=== PATIENT | male | born 1960 | race Caucasian/White ===

== ENCOUNTER 2020-11-26 18:32 | Observation (INO) | payer OTHER ==
[~2020-11-26] VITALS: Ht 180.3 cm; Wt 86.5 kg
[~2020-11-26 18:32] MED LIST: BACL-19 PO; CARI350T PO; EMPA1TAB PO; HYDR4TAB48 PO; INDO50CA15 PO; INSU100I28 SQ; METF10002 PO; METO-99 PO; PANT40TA6 PO; PIOG30TA23 PO; ROSU40TA PO; ROSU5TAB PO; TRAZ-175 PO; VENL150C6 PO
[2020-11-26] MEDS ORDERED: ASPIRIN 81 MG TABLET CHEW ONE (18:57)
[2020-11-26] MEDS ORDERED: ASPIRIN 81 MG TABLET CHEW PO ONE (19:00)
--- NOTE | 2020-11-26 19:00 | NUR ---
BROUGHT IN FROM HOME BY . PT STATES HE HAD A CRAMP IN LEFT ARM LAST NIGHT. WENT TO WORK AND CRAMPO NEVER WENT AWAY. CHEST PAIN STARTED AND PT DECIDED IT WAS TIME TO COME INTO THE ED.
[2020-11-26] MEDS ORDERED: BACL20TA PO (19:06)
[2020-11-26] MEDS ORDERED: OXYC10TA6 PO (19:06)
[2020-11-26] MEDS ORDERED: INSU100V8 SQ (19:08)
[2020-11-26 19:19] LABS: BASOPHILS % (AUTO) 1 % (0-1); EOSINOPHILS % (AUTO) 4 % (1-7); LYMPHOCYTES % (AUTO) 34 % (22-44); MD NO; MEAN CORPUSCULAR HEMOGLOBIN 27.3 pg (27.5-34.5); MEAN PLATELET VOLUME 7.7 fL (7.4-10.4); MONOCYTES % (AUTO) 10 % (2-9); NEUTROPHILS % (AUTO) 51 % (42-75); PLATELET COUNT 240 x10^3/uL (130-400); RED BLOOD COUNT 5.86 x10^6/uL (4.38-5.82)
[2020-11-26 19:29] LABS: ALANINE AMINOTRANSFERASE 33 U/L (12-78); ANION GAP 7 mmol/L (5-15); CHLORIDE 106 mmol/L (98-107)
[2020-11-26 19:33] LABS: ALKALINE PHOSPHATASE 121 U/L (45-117); BILIRUBIN,TOTAL 0.3 mg/dL (0.2-1.0); TOTAL PROTEIN 7.3 g/dL (6.4-8.2); TROPONIN I < 0.015 ng/mL (0.000-0.045)
[2020-11-26] MEDS ORDERED: MORPHINE SULFATE 4 MG/ML, 1ML ONE ×2 (20:19→22:16)
[2020-11-26] MEDS: MORPHINE SULFATE 4 MG/ML, 1ML IVPush PRN ×2 (20:24→22:21)
[2020-11-26] MEDS ORDERED: SODIUM CHLORIDE FLUSH 10ML SYR IVF ONE (20:30)
[2020-11-26] MEDS ORDERED: NITROGLYCERIN SINGLE TAB 0.4 MG SL ONE (20:54)
[2020-11-26] MEDS: NITROGLYCERIN SINGLE TAB 0.4 MG SL PRN ×2 (20:59→21:08)
--- NOTE | 2020-11-26 20:59 | NUR ---
PT STATING ARM PAIN 6/10 AND CHEST PAIN 5/10. PT REPORTS MORPHINE HELPS SLIGHTLY. PT MEDICATED PER MAR WITH NITROGLYCERIN.
[2020-11-26] MEDS ORDERED: SODIUM CHLORIDE FLUSH 10ML SYR IVF PRN (21:30)
[2020-11-26] MEDS ORDERED: ONDANSETRON 2MG/ML, 2ML IVPush PRN (22:30)
[2020-11-26] MEDS ORDERED: ACETAMINOPHEN 325 MG TABLET PO PRN (22:30)
[2020-11-26] MEDS ORDERED: ATORVASTATIN 80 MG TABLET PO SCH (22:30)
[2020-11-26] MEDS ORDERED: LABETALOL 5MG/ML, 20ML IVPush PRN (22:30)
[2020-11-26] MEDS ORDERED: INSULIN GLARGINE 100 UNITS/ML, PEN SQ-INSULIN SCH (22:30)
[2020-11-26] MEDS ORDERED: NITROGLYCERIN 0.4 MG/SPRAY SL PRN (22:30)
--- NOTE | 2020-11-26 22:37 | NUR ---
GAVE REPORT TO CHARLEEN SUBRAMANIAN
[2020-11-26 22:46] LABS: CHOLESTEROL, TOTAL 131 mg/dL (140-239); TRIGLYCERIDES 193 mg/dL (50-200); VLDL CHOLESTEROL 39 mg/dL (0-25)
[2020-11-26 22:49] LABS: CHOL/HDL RATIO 3.6; HDL CHOL % 27 % (26-37); HDL CHOLESTEROL (DIRECT) 36 mg/dL (40-60); LDL CHOLESTEROL,CALCULATED 56 mg/dL (54-169); LDL/HDL RATIO 1.6 (0.5-3.0); TROPONIN I < 0.015 ng/mL (0.000-0.045)
[2020-11-26 23:17] VITALS: BP 174/98
[2020-11-27] MEDS: SODIUM CHLORIDE 0.9% 1,000 ML IV SCH ×2 (00:38→11:50)
[2020-11-27 01:06] VITALS: BP 129/77
[2020-11-27 01:27] LABS: TROPONIN I < 0.015 ng/mL (0.000-0.045)
[2020-11-27] MEDS: HYDROcodone/APAP 5/325 TABLET PO PRN ×3 (01:59→17:44)
[2020-11-27 04:32] LABS: BASOPHILS % (AUTO) 1 % (0-1); EOSINOPHILS % (AUTO) 5 % (1-7); LYMPHOCYTES % (AUTO) 35 % (22-44); MEAN CORPUSCULAR HEMOGLOBIN 27.3 pg (27.5-34.5); MEAN PLATELET VOLUME 8.1 fL (7.4-10.4); MONOCYTES % (AUTO) 12 % (2-9); NEUTROPHILS % (AUTO) 48 % (42-75); PLATELET COUNT 206 x10^3/uL (130-400); RED BLOOD COUNT 5.62 x10^6/uL (4.38-5.82); RED CELL DISTRIBUTION WIDTH 14.5 % (9.4-14.8)
[2020-11-27 04:33] LABS: MD NO
[2020-11-27 04:38] LABS: ALBUMIN 3.4 g/dL (3.4-5.0); ANION GAP 9 mmol/L (5-15); CALCIUM 8.3 mg/dL (8.5-10.1); CHLORIDE 107 mmol/L (98-107)
[2020-11-27 04:44] LABS: ALANINE AMINOTRANSFERASE 30 U/L (12-78); ALKALINE PHOSPHATASE 96 U/L (45-117); BILIRUBIN,TOTAL 0.3 mg/dL (0.2-1.0); CREATININE 0.98 mg/dL (0.7-1.3); TOTAL PROTEIN 6.6 g/dL (6.4-8.2); TROPONIN I < 0.015 ng/mL (0.000-0.045)
[2020-11-27] MEDS ORDERED: ASPIRIN 325 MG TABLET EC PO SCH (06:00)
[2020-11-27] MEDS: INSULIN LISPRO 100 UNITS/ML, PEN SQ-INSULIN SCH ×3 (07:00→17:45)
[2020-11-27 07:57] VITALS: BP 149/88
[2020-11-27] MEDS ORDERED: REGADENOSON 0.4 MG/5 ML SYRINGE ONE (08:05)
[2020-11-27] MEDS ORDERED: MAGNESIUM SULFATE PMX 2GM/50ML 50 ML IV ONE (08:30)
[2020-11-27] MEDS ORDERED: METOPROLOL TARTRATE 25 MG TAB PO SCH (09:00)
[2020-11-27 14:30] VITALS: BP 163/94
[2020-11-27] MEDS ORDERED: FLU VACC QS2020-21(6MOS UP)/PF 60MCG/0.5 ML SYR IM-VACC ONE (15:30)
== END 2020-11-27 18:22 | disposition home or self-care (01) ==
LOC: ED 20:56 → EDIP 21:10 → INTOOBSV 21:10 → 5SO 22:53
PROVIDERS: ADMIT Internal Medicine; ATTEND Internal Medicine
DX: R07.89 Other chest pain (principal); I25.110 Atherosclerotic heart disease of native coronary artery with unstable angina pectoris; I10 Essential (primary) hypertension; E11.9 Type 2 diabetes mellitus without complications; M47.816 Spondylosis without myelopathy or radiculopathy, lumbar region; K21.9 Gastro-esophageal reflux disease without esophagitis; E78.5 Hyperlipidemia, unspecified; I25.2 Old myocardial infarction; Z79.899 Other long term (current) drug therapy; Z95.5 Presence of coronary angioplasty implant and graft; Z98.1 Arthrodesis status; Z96.642 Presence of left artificial hip joint; Z23 Encounter for immunization
CPT/HCPCS: 36415; 71045; 78452; 80053; 80061; 82962; 83735; 83880; 84100; 84484; 85025; 90471; 90686; 93005; 93017; 93306; 96361; 96365; 96366; 96375; 96376; 99285; A9502; G0378; J1815; J2270; J2785; J3475; J7030